=== PATIENT | male | born 2000 | race Caucasian/White ===

== ENCOUNTER 2022-03-05 08:22 | Emergency (ER) | payer OTHER ==
[2022-03-05] MEDS ORDERED: NA CHLORIDE 0.9% 1,000 ML ONE ×2 (09:04→09:09)
[2022-03-05 09:18] LABS: Absolute Lymphocytes (CBC) 1.7 K/uL (0.7-4.9); Hematocrit 47.4 % (39.6-49.0); Lymphocytes % 29.2 % (15.3-44.8); MPV 9.9 fL (7.6-11.3); RBC Red Blood Cell Count 5.26 M/uL (4.33-5.43)
[2022-03-05 09:24] LABS: Albumin 4.2 g/dL (3.4-5.0); Bilirubin Total 0.5 mg/dL (0.2-1.0); Potassium 3.7 mmol/L (3.5-5.1); Protein, Total 7.7 g/dL (6.4-8.2)
[2022-03-05 09:44] LABS: Urine Blood Negative (Negative); Urine Glucose Negative (Negative); Urine Protein 1+ (Negative); Urine Specific Gravity >=1.030 (1.005-1.030)
--- NOTE | 2022-03-05 10:03 | RAD REPORT ---
EXAM DESCRIPTION: RAD - Chest Single View - 03/05/2022 9:17 am CLINICAL HISTORY: PRODUCTIVE COUGH COMPARISON: January 2015 chest film TECHNIQUE: AP portable chest image was obtained 03/05/2022 9:17 am . FINDINGS: Lungs are clear. Heart and vasculature are normal. No measurable pleural effusion and no p neumothorax. No acute bony abnormality seen. No acute aortic findings suspected. IMPRESSION: No acute cardiopulmonary process.
--- NOTE | 2022-03-05 10:08 | RAD REPORT ---
EXAM DESCRIPTION: CT - Abdomen Pelvis W Contrast - 03/05/2022 9:45 am CLINICAL HISTORY: dfd COMPARISON: No comparisons TECHNIQUE: Biphasic, helical CT imaging of the abdomen and pelvis was performed following 100 ml non -ionic IV contrast. No oral contrast administered. All CT scans are performed using dose optimization technique as appropriate and may include automated exposure control or mA/KV adjustment according to patient size. FINDINGS: No suspicious findings in the lung bases. The liver, spleen, and pancreas show no suspicious findings. Gallbladder and biliary tree are also wi thout suspicious finding. Symmetric renal function is seen with no hydronephrosis or suspicious renal mass. No pyelonephritis o r acute parenchymal process. Bladder is fully contracted limiting assessment. No bladder calculi seen . No adrenal abnormalities. Fluid partially fills the stomach. There is no evidence for gastric wall thickening, mass or edema. N o large or small bowel dilatation. A few scattered small 10 mm or less mesenteric lymph nodes are pre sent. The appendix is identified and normal. No free air, free fluid or inflammatory stranding. No hernia, mass or bulky lymphadenopathy. No suspicious bony findings. IMPRESSION: Contrast enhanced CT abdomen and pelvis showing no acute or emergent finding.
--- NOTE | 2022-03-05 10:19 | ER ---
Nurse's Notes [facility] Name: Devendra Salazar Age: 21 yrs Sex: Male : 2000 Arrival Date: 03/05/2022 Time: 08: Bed 26 Private MD: Diagnosis: Abdominal pain, unspecified Presentation: 03/05 09:06 Chief complaint: Patient states: "I been vomiting for the last 3 months, but today I em6 vomited clots and felt dizziness and decided to come to the ER. No bleeding in my stool. I been having diarrhea 7 times a day for the last 3 months. I have a burning sensation in the upper part of my stomach.". Coronavirus screen: Client denies travel out of the [place] in the last 14 days. Ebola Screen: Patient negative for fever greater than or equal to 101.5 degrees Fahrenheit, and additional compatible Ebola Virus Disease symptoms. Initial Sepsis Screen: Does the patient meet any 2 criteria? No. Patient's initial sepsis screen is negative. Does the patient have a suspected source of infection? No. Patient's initial sepsis screen is negative. Risk Assessment: Do you want to hurt yourself or someone else? Patient reports no desire to harm self or others. Onset of symptoms was December 2021. 09:06 Method Of Arrival: Ambulatory em6 09:06 Acuity: ADAN 3 em6 Historical: - Allergies: 09:15 PENICILLINS; em6 - Home Meds: 09:15 Adderall 10 mg oral tab 1 tab 2 times per day [Active]; em6 - PMHx: 10:02 ADHD; em6 - Immunization history:: Adult Immunizations unknown. - Social history:: Smoking status: Patient denies any tobacco usage or history of. Screenin:14 Abuse screen: Denies threats or abuse. Nutritional screening: No deficits noted. em6 Tuberculosis screening: No symptoms or risk factors identified. Fall Risk IV access (20 points). Ambulatory Aid- None/Bed Rest/Nurse Assist (0 pts). Gait- Normal/Bed Rest/Wheelchair (0 pts) Mental Status- Oriented to own ability (0 pts). Total Montilla Fall Scale indicates No Risk (0-24 pts). Assessment: 09:10 General: Appears in no apparent distress. comfortable, Behavior is calm, cooperative. em6 Pain: Complains of pain in epigastric area and left upper quadrant. Pain: Pain does not radiate. Pain currently is 8 out of 10 on a pain scale. Quality of pain is described as burning, Is continuous. Neuro: Cota Agitation-Sedation Scale (RASS): 0 - Alert and Calm Level of Consciousness is awake, alert, obeys commands, Oriented to person, place, time, situation. Cardiovascular: Heart tones present Capillary refill < 3 seconds Patient's skin is warm and dry. Rhythm is sinus rhythm. Respiratory: Airway is patent Respiratory effort is even, unlabored, Respiratory pattern is regular, symmetrical, Breath sounds are clear bilaterally. GI: Abdomen is non-distended, Stools are reported to be diarrhea. Last BM was March 05, 2022. Bowel sounds present X 4 quads. Abd is soft and non tender X 4 quads. Reports upper abdominal pain, diarrhea, nausea, vomiting, Patient currently denies bloody stool. : No signs and/or symptoms were reported regarding the genitourinary system. EENT: No signs and/or symptoms were reported regarding the EENT system. Derm: No signs and/or symptoms reported regarding the dermatologic system. Musculoskeletal: No signs and/or symptoms reported regarding the musculoskeletal system. Circulation, motion, and sensation intact. 10:17 Reassessment: Patient appears in no apparent distress at this time. Patient and/or em6 family updated on plan of care and expected duration. Pain level reassessed. Pain: Pain currently is 3 out of 10 on a pain scale. Vital Signs: 08:35 BP 122 / 71; Pulse 71; Resp 16; Temp 98.0; Pulse Ox 100% on R/A; Weight 81.65 kg; em1 Height 6 ft. 0 in. (182.88 cm); Pain 8/10; 09:52 BP 112 / 62; Pulse 63; Resp 26; Pulse Ox 100% on R/A; em6 10:19 BP 108 / 58; Pulse 67; Resp 20; Pulse Ox 100% on R/A; em6 08:35 Body Mass Index 24.41 (81.65 kg, 182.88 cm) em1 ED Course: 08:26 Patient arrived in ED. mr 08:26 Rafi Santillan is PHCP. jl9 08:26 Ted Cortez DO is Attending Physician. jl9 08:48 Initial lab(s) drawn, by de, sent to lab. Inserted saline lock: 20 gauge in right em1 antecubital area, using aseptic technique. Blood collected. 08:59 Gordy Barlow, RN is Primary Nurse. jl7 09:10 Triage completed. em6 09:14 Arm band placed on right wrist. em6 09:18 Patient has correct armband on for positive identification. Bed in low position. Call em6 light in reach. Side rails up X2. relationship assoc on. Pulse ox on. NIBP on. Warm blanket given. 09:19 XRAY Chest (1 view) In Process Unspecified. EDMS 09:46 CT Abd/Pelvis - IV Contrast Only In Process Unspecified. EDMS 10:30 No provider procedures requiring assistance completed. IV discontinued, intact, em6 bleeding controlled, No redness/swelling at site. Pressure dressing applied. Administered Medications: 09:10 Drug: NS 0.9% 2000 ml Route: IV; Rate: 2000 ml; Site: right antecubital; em6 10:32 Follow up: Response: No adverse reaction; IV Status: Order to discontinue infusion; IV em6 Intake: 1500ml Medication: 09:18 VIS not applicable for this client. em6 Intake: 10:32 IV: 1500ml; Total: 1500ml. em6 Outcome: 10:19 Discharge ordered by . jl9 10:30 Discharged to home ambulatory. em6 10:30 Condition: stable 10:30 Discharge instructions given to patient, Instructed on discharge instructions, follow up and referral plans. Demonstrated understanding of instructions, follow-up care. 10:31 Patient left the ED. em6 Signatures: Dispatcher [employer] [facility] Krissy Newton Eric em1 Gordy Barlow, RN RN [id number] Rafi Santillan jl9 Em Avina, RN RN em6 Corrections: (The following items were deleted from the chart) 09:22 09:10 Pain: Pain does not radiate. Pain currently is 3 out of 10 on a pain scale. em6 Quality of pain is described as burning, Is continuous, em6 09:52 09:15 Immunization history: Adult Immunizations unknown, em6 em6
--- NOTE | 2022-03-05 10:19 | EDPHYS ---
Physician Documentation [facility] Name: Devendra Salazar Age: 21 yrs Sex: Male : 2000 Arrival Date: 03/05/2022 Time: 08: Bed 26 Private MD: ED Physician Ted Cortez HPI: 03/05 09:30 This 21 yrs old Male presents to ER via Ambulatory with complaints of jl9 Intermittent abdominal cramping and spitting up blood a few times. Denies any current symptoms. . 09:30 Onset: The symptoms/episode began/occurred 3 month(s) ago. Associated signs and jl9 symptoms: Pertinent positives: abdominal pain. Modifying factors: The patient symptoms are alleviated by nothing, the patient symptoms are aggravated by nothing. The patient has experienced similar episodes in the past. The patient has not recently seen a physician. Historical: - Allergies: 09:15 PENICILLINS; em6 - Home Meds: 09:15 Adderall 10 mg oral tab 1 tab 2 times per day [Active]; em6 - PMHx: 10:02 ADHD; em6 - Immunization history:: Adult Immunizations unknown. - Social history:: Smoking status: Patient denies any tobacco usage or history of. ROS: 09:32 Constitutional: Negative for fever, chills, and weight loss, Eyes: Negative for injury, jl9 pain, redness, and discharge, ENT: Negative for injury, pain, and discharge, Neck: Negative for injury, pain, and swelling, Cardiovascular: Negative for chest pain, palpitations, and edema. 09:32 Respiratory: Positive for Spitting up blood. . 09:32 Abdomen/GI: Positive for abdominal cramps. 09:32 Back: Negative for injury and pain, MS/Extremity: Negative for injury and deformity, jl9 Skin: Negative for injury, rash, and discoloration, Neuro: Negative for headache, weakness, numbness, tingling, and seizure, Psych: Negative for depression, anxiety, suicide ideation, homicidal ideation, and hallucinations, Allergy/Immunology: Negative for hives, rash, and allergies, Endocrine: Negative for neck swelling, polydipsia, polyuria, polyphagia, and marked weight changes, Hematologic/Lymphatic: Negative for swollen nodes, abnormal bleeding, and unusual bruising. Exam: 09:33 Constitutional: This is a well developed, well nourished patient who is awake, alert, jl9 and in no acute distress. Head/Face: Normocephalic, atraumatic. Eyes: Pupils equal round and reactive to light, extra-ocular motions intact. Lids and lashes normal. Conjunctiva and sclera are non-icteric and not injected. Cornea within normal limits. Periorbital areas with no swelling, redness, or edema. ENT: Mucous membranes moist. Neck: Trachea midline, no thyromegaly or masses palpated, and no cervical lymphadenopathy. Supple, full range of motion without nuchal rigidity, or vertebral point tenderness. No Meningismus. Chest/axilla: Normal chest wall appearance and motion. Nontender with no deformity. No lesions are appreciated. Cardiovascular: Regular rate and rhythm with a normal S1 and S2. No gallops, murmurs, or rubs. Normal PMI, no JVD. No pulse deficits. Respiratory: Lungs have equal breath sounds bilaterally, clear to auscultation and percussion. No rales, rhonchi or wheezes noted. No increased work of breathing, no retractions or nasal flaring. Abdomen/GI: Soft, non-tender, with normal bowel sounds. No distension or tympany. No guarding or rebound. No evidence of tenderness throughout. Back: No spinal tenderness. No costovertebral tenderness. Full range of motion. Skin: Warm, dry with normal turgor. Normal color with no rashes, no lesions, and no evidence of cellulitis. MS/ Extremity: Pulses equal, no cyanosis. Neurovascular intact. Full, normal range of motion. Neuro: Awake and alert, GCS 15, oriented to person, place, time, and situation. Cranial nerves II-XII grossly intact. Motor strength 5/5 in all extremities. Sensory grossly intact. Cerebellar exam normal. Normal gait. Psych: Awake, alert, with orientation to person, place and time. Behavior, mood, and affect are within normal limits. Vital Signs: 08:35 BP 122 / 71; Pulse 71; Resp 16; Temp 98.0; Pulse Ox 100% on R/A; Weight 81.65 kg; em1 Height 6 ft. 0 in. (182.88 cm); Pain 8/10; 09:52 BP 112 / 62; Pulse 63; Resp 26; Pulse Ox 100% on R/A; em6 10:19 BP 108 / 58; Pulse 67; Resp 20; Pulse Ox 100% on R/A; em6 08:35 Body Mass Index 24.41 (81.65 kg, 182.88 cm) em1 MDM: 08:36 Patient medically screened. jl9 09:32 Data reviewed: vital signs, nurses notes. jl9 10:17 Counseling: I had a detailed discussion with the patient and/or guardian regarding: the 9 historical points, exam findings, and any diagnostic results supporting the discharge/admit diagnosis, lab results, radiology results, the need for outpatient follow up, Patient declines rectal exam, states no rectal bleeding. . 03/05 08:32 Order name: CBC with Diff; Complete Time: 09:27 9 03/05 08:32 Order name: CMP; Complete Time: 09:49 03/05 08:32 Order name: Lipase; Complete Time: 09:49 03/05 08:57 Order name: Type And Screen; Complete Time: 10:12 jl7 03/05 09:38 Order name: ABO/RH no charge; Complete Time: 09:49 EDMS 03/05 08:32 Order name: CT Abd/Pelvis - IV Contrast Only; Complete Time: 10:12 9 03/05 08:32 Order name: IV Saline Lock; Complete Time: 08:48 03/05 08:32 Order name: Labs collected and sent; Complete Time: 08:48 03/05 08:32 Order name: Urine Dipstick-Ancillary (obtain specimen); Complete Time: 09:54 03/05 08:40 Order name: XRAY Chest (1 view); Complete Time: 10:12 03/05 09:45 Order name: Urine Dipstick-Ancillary; Complete Time: 09:49 EDMS Administered Medications: 09:10 Drug: NS 0.9% 2000 ml Route: IV; Rate: 2000 ml; Site: right antecubital; em6 10:32 Follow up: Response: No adverse reaction; IV Status: Order to discontinue infusion; IV em6 Intake: 1500ml Disposition: 09:36 Co-signature as Attending Physician, Ted Cortez DO I agree with the assessment and ms3 plan of care. Disposition Summary: 03/05/22 10:19 Discharge Ordered Location: Home jl9 Condition: Stable jl9 Diagnosis - Abdominal pain, unspecified jl9 Followup: jl9 - With: Private Physician - When: 1 - 2 days - Reason: Recheck today's complaints, Continuance of care, Re-evaluation by your physician Discharge Instructions: - Discharge Summary Sheet jl9 - Abdominal Pain, Adult jl9 Forms: - Medication Reconciliation Form jl9 - Thank You Letter jl9 - Antibiotic Education jl9 - Prescription Opioid Use jl9 Signatures: Dispatcher [employer] EDMS Ted Cortez DO DO ms3 Tyrell, Rafi jl9 Em Avina, RN RN em6 Corrections: (The following items were deleted from the chart) 09:52 09:15 Immunization history: Adult Immunizations unknown, em6 em6 10:18 09:30 This 21 yrs old Male presents to ER via Ambulatory with complaints of jl9 Intermittent abdominal pain and spitting up blood. . jl9
[2022-03-05 10:52] VITALS: TEMP 98; O2SAT 100
[2022-03-05 11:13] VITALS: BP 108/58
== END 2022-03-05 10:31 | disposition home or self-care (01) ==
LOC: ER 08:22
DX: R10.9 Unspecified abdominal pain (principal); Z88.0 Allergy status to penicillin
CPT/HCPCS: 85025; 36415; 86900; 86850; 86901; 81003; 83690; 80053; 74177; 71045; Q9967; J7030 ×2